=== PATIENT | male | born 1955 | race Caucasian/White ===

== ENCOUNTER 2023-06-20 13:09 | Day surgery (SDC) | payer OTHER ==
[2023-06-18 16:24] LABS: BASOPHILS # (AUTO) 0.1 X10'3 (0-0.2); BASOPHILS % (AUTO) 0.8 % (0-1); EOSINOPHILS # (AUTO) 0.3 X10'3 (0-0.9); EOSINOPHILS % (AUTO) 2.5 % (0-6); LYMPHOCYTES # (AUTO) 1.4 X10'3 (1.1-4.8); LYMPHOCYTES % (AUTO) 12.8 % (21-51); MEAN CORPUSCULAR HEMOGLOBIN 30.3 PG (27.0-31.0); MEAN CORPUSCULAR HGB CONC 33.8 g/dL (33.0-36.5); MEAN CORPUSCULAR VOLUME 89.9 FL (78-98); MEAN PLATELET VOLUME 6.6 FL (7.4-10.4); MONOCYTES # (AUTO) 0.9 X10'3 (0-0.9); MONOCYTES % (AUTO) 8.3 % (2-12); NEUTROPHILS % (AUTO) 75.6 % (42-75); PRE OP HEMATOCRIT 43.4 % (42.0-52.0); PRE OP HEMOGLOBIN 14.7 g/dL (14.0-17.9); PRE OP PLATELET COUNT 476 X10'3 (140-440); PRE OP WHITE BLOOD COUNT 10.6 10'3 (4.8-10.8); RED BLOOD COUNT 4.83 X10'6 (4.70-6.10); RED CELL DISTRIBUTION WIDTH 12.9 % (11.5-14.5)
[2023-06-18 16:33] LABS: ALBUMIN 2.8 G/DL (3.4-5.0); ALBUMIN/GLOBULIN RATIO 0.6 (1.1-1.5); ALKALINE PHOSPHATASE 61 IU/L (46-116); BLOOD UREA NITROGEN 15 MG/DL (7-18); BUN/CREATININE RATIO 11.8 (10.0-20.0); CALCIUM 9.2 MG/DL (8.5-10.1); CHLORIDE 105 MMOL/L (99-107); CREATININE 1.27 MG/DL (0.60-1.10); PRE OP ALT 29 U/L (30-65); PRE OP ANION GAP 11 (8-16); PRE OP AST 20 U/L (10-37); PRE OP BILIRUB, TOTAL 0.3 MG/DL (0.0-1.0); PRE OP GLUCOSE 143 MG/DL (70-104); PRE OP POTASSIUM 4.3 MMOL/L (3.4-5.1); PRE OP SODIUM 142 MMOL/L (135-145); TOTAL CARBON DIOXIDE 26.1 MMOL/L (24-32); TOTAL PROTEIN 7.4 G/DL (6.4-8.2); eGFR 57 ML/MIN
[2023-06-20] VITALS (14 sets, daily range): BP systolic 97–150; BP diastolic 60–102; PULSE 72–104; RESP 12–20; TEMP 98; O2SAT 96–100
[~2023-06-20] VITALS: Ht 188 cm; Wt 112.2 kg
[~2023-06-20 13:09] MED LIST: ALBU8HFA INH; ASPI-12 PO; BICT1TAB PO; CELE-193 PO; CHLO50TA PO; LOSA-415 PO; MIRT-142 PO; ROPI2TAB29 PO; TIOT4MIS8 INH; VALA500T41 PO
[2023-06-20] MEDS: ringers solution, lacted 1,000 ML IV SCH (13:39)
[2023-06-20] MEDS: famotidine 20mg tablet PO ONE (13:39)
[2023-06-20] MEDS ORDERED: sevoflurane 250ml liquid IH ONE (13:47)
[2023-06-20] MEDS ORDERED: fentaNYL/PF 50MCG/1 ML 2ML syringe ONE (13:50)
[2023-06-20] MEDS ORDERED: midazolam 1 mg/ML 2ml injection ONE ×2 (13:50)
[2023-06-20] MEDS ORDERED: propofol inj 20 ML IV ONE (13:51)
[2023-06-20] MEDS ORDERED: rocuronium 10mg/ml inj IV ONE (13:51)
[2023-06-20] MEDS ORDERED: labetalol 20mg/4ml (5mg/ml) syringe IV PRN (14:25)
[2023-06-20] MEDS ORDERED: enalaprilat dihydrate 2.5mg/2ml vial IV PRN (14:25)
[2023-06-20] MEDS ORDERED: meperidine/PF 25mg/ml syringe IV PRN ×3 (14:25)
[2023-06-20] MEDS ORDERED: ringers solution, lacted 1,000 ML IV SCH (14:25)
[2023-06-20] MEDS ORDERED: proCHLORperazine 10 MG/2 ml inj IV PRN (14:25)
[2023-06-20] MEDS ORDERED: ondansetron/PF 4mg/2ml inj IV PRN (14:25)
[2023-06-20] MEDS ORDERED: morphine 4 MG/ML inj SYRINge IV PRN (14:25)
[2023-06-20] MEDS ORDERED: glycopyrrolate 0.2mg/ml inj ONE (14:47)
[2023-06-20] MEDS ORDERED: ondansetron/PF 4mg/2ml inj ONE (14:47)
[2023-06-20] MEDS ORDERED: neostigmine methylsulfate 1 MG/ML 10ml vial ONE (14:47)
[2023-06-20] MEDS ORDERED: dexamethasone sod phosphate 4mg/ml inj. ONE (14:47)
[2023-06-20] MEDS: morphine 2 MG/ML inj. syringe IV PRN (15:29)
[2023-06-20] MEDS: morphine 2 MG/ML inj. syringe IV ONE (15:30)
== END 2023-06-20 16:54 | disposition home or self-care (01) ==
LOC: PAS 13:09
PROVIDERS: ATTEND Internal Medicine Critical Care Medicine
DX: R91.8 Other nonspecific abnormal finding of lung field (principal); I10 Essential (primary) hypertension; G47.30 Sleep apnea, unspecified; J44.9 Chronic obstructive pulmonary disease, unspecified; G62.9 Polyneuropathy, unspecified; G25.81 Restless legs syndrome; K21.9 Gastro-esophageal reflux disease without esophagitis; F31.9 Bipolar disorder, unspecified; E66.9 Obesity, unspecified; Z68.31 Body mass index [BMI] 31.0-31.9, adult; Z98.890 Other specified postprocedural states; Z87.891 Personal history of nicotine dependence; Z85.118 Personal history of other malignant neoplasm of bronchus and lung; Z88.1 Allergy status to other antibiotic agents; Z79.899 Other long term (current) drug therapy
CPT/HCPCS: 31623; 31624; 31628; 31629; 31653; 36415; 71045; 71250; 80053; 82948; 85025; 87015; 87070; 87102; 87116; 87206; 93005; 94760; J1100; J2250; J2270; J2405; J2704; J2710; J3010; J3490; J7120; Z7506; Z7508; Z7512; 31622; 31625; 31626; 31627; 31654; A4618